=== PATIENT | female | born 1960 | race Caucasian/White ===

== ENCOUNTER 2017-10-01 19:20 | Emergency (ER) | payer OTHER, BC ==
[~2017-10-01] VITALS: Ht 154.9 cm; Wt 70.3 kg
--- OUTSIDE RECORDS SUMMARY | ~2017-10-01 | XMS | Clinical Summary ---
Demographics + + + | Address | [address] | | | [place] [address] | + + + | Home Phone | | + + + | Preferred Language | Unknown | + + + | Marital Status | | + + + | Druze Affiliation | Unknown | + + + | Race | Unknown | + + + | Ethnic Group | Unknown | + + + Author + + + | Author | [facility] | | | and [place] | + + + | Organization | [facility] | | | and [place] | + + + | Address | Unknown | + + + | Phone | Unavailable | + + + Support + + + + + | Name | Relationship | Address | Phone | + + + + + | Other,None | ECON | [place] | | | | | [address] | | + + + + + Care Team Providers + +------+ + | Care Butcher Apprentice Name | Role | Phone | + +------+ + | No, Physician | PP | Unavailable | + +------+ + Allergies Not on File Current Medications Not on file Active Problems Not on file Resolved Problems + + + + | Problem | Noted | Resolved | | | Date | Date | + + + + | Pre-employment health screening examination | 03/30/20 | | | | 19 | 7 | + + + + Social History + +-------+ +--------+------+ | Tobacco Use | Types | Packs/Day | Years | Date | | | | | Used | | + +-------+ +--------+------+ | Never Assessed | | | | | + +-------+ +--------+------+ + + + | Sex Assigned at | Date Recorded | | | | + + + | Not on file | | + + + Plan of Treatment + + + + + | Health Maintenance | Due Date | Last Done | Comments | + + + + + | Hepatitis C | | | | | Screening | 2 | | | + + + + + | Vaccine: | | | | | Dtap/Tdap/Td (1 - | 1 | | | | Tdap) | | | | + + + + + | CERVICAL CANCER | | | | | SCREENING (PAP EVERY | 3 | | | | 3 YEARS 21-64 ) | | | | + + + + + | BREAST CANCER | | | | | SCREENING (MAMM Q2 | 2 | | | | YEARS 50-74) | | | | + + + + + | COLON CANCER | | | | | SCREENING | 2 | | | | (COLONOSCOPY EVERY | | | | | 10 YEARS 50-75) | | | | + + + + + | Vaccine: Influenza | | | | | (Season Ended) | 8 | | | + + + + + Results Not on filefrom Last 3 Months"
--- OUTSIDE RECORDS SUMMARY | ~2017-10-01 | XMS | Clinical Summary ---
Demographics + + + | Address | [address] | | | [place] [address] | + + + | Home Phone | | + + + | Preferred Language | Unknown | + + + | Marital Status | | + + + | Temple Affiliation | Unknown | + + + | Race | Unknown | + + + | Ethnic Group | Unknown | + + + Author + + + | Author | [facility] | | | and [place] | + + + | Organization | [facility] | | | and [place] | + + + | Address | Unknown | + + + | Phone | Unavailable | + + + Support + + + + + | Name | Relationship | Address | Phone | + + + + + | Other,None | ECON | [place] | | | | | [address] | | + + + + + Care Team Providers + +------+ + | Care Child Watch Attendant Name | Role | Phone | + [...]
[~2017-10-01 19:20] MED LIST: ASPIRIN EC325 MG PO; PERCOCET 10-321 EACH PO; PREMARIN42.5 GM VAGINAL; SERTRALINE HCL100 MG PO; SYNTHROID25 MCG PO; TYLENOL325 MG PO; ULTRAM50 MG PO; VITAMIN D2000 UNI1 PO; VITAMIN E400 UNI2 PO; XARELTO10 MG PO
[2017-10-14] MEDS ORDERED: VITAMIN D3400 UNI1 PO (15:08)
[2017-10-14] MEDS ORDERED: IBUPROFEN400 MG PO (15:09)
[2017-10-14] MEDS ORDERED: PAIN RELIEVER1 EAC3 PO (15:10)
== END 2017-10-01 20:20 | disposition left against medical advice (07) ==
LOC: ED 19:20
DX: Z53.21 Procedure and treatment not carried out due to patient leaving prior to being seen by health care provider (principal); Z88.8 Allergy status to other drugs, medicaments and biological substances; Z88.5 Allergy status to narcotic agent; Z79.899 Other long term (current) drug therapy

== ENCOUNTER 2017-10-19 07:05 | Day surgery (SDC) | payer OTHER, BC ==
[~2017-10-19] VITALS: Ht 154.9 cm; Wt 68.0 kg
[~2017-10-19 07:05] MED LIST changes: +IBUPROFEN400 MG PO; +PAIN RELIEVER1 EAC3 PO; +VITAMIN D3400 UNI1 PO
--- NOTE | 2017-10-19 12:52 | NUR ---
10/19/17 1252 Tashia Abad 1244 PATIENT ARRIVES TO PACU, SNORING. PATIENT COUGHS WITH PAINFUL STIMULI, SNORING IMPROVED, PATIENT BACK TO SLEEP. MASK AT 6 LITERS. RESP EVEN AND UNLABORED.
--- NOTE | 2017-10-19 13:49 | NUR ---
PATIENT BACK IN DAY SURGERY ROOM FROM PACU. C/O PAIN 12/14. DECLINED PAIN MEDS AT THIS TIME. STATES JUST WANTS TO SLEEP. C/O NAUSEA. MEDICATED FOR NAUSEA IN PACU. VS CHECKED. LEFT SHOULDER DRESSINGS X 3 CDI. CSM TO LEFT FINGERS WNL. SCDs ON. CALL LIGHT WITHIN REACH.
--- NOTE | 2017-10-19 14:54 | NUR ---
1440: PATIENT AWAKENED FOR VS CHECK. STATES NAUSEA GONE. PAIN IMPROVED. DECLINES PAIN MEDS AT THIS TIME. GIVEN ICE WATER. GIVEN WARM BLANKETS. SIGNIFICANT OTHER AT BEDSIDE. CALL LIGHT WITHIN REACH.
[2017-10-19] MEDS ORDERED: PERCOCET 10-321 EACH PO (15:12)
--- NOTE | 2017-10-19 16:25 | NUR ---
1540: PATIENT ASSISTED OOB AND TO BATHROOM. VOID WITHOUT DIFFICULTY. PATIENT GIVEN JELLO AND CRACKERS TO EAT. DISCHARGE INSTRUCTIONS GIVEN TO PATIENT AND . IV DC'D WNL. TIP INTACT. DRESSING APPLIED. 1605: PATIENT DRESSED AND READY TO GO HOME. PATIENT DISCHARGED TO HOME WITH VIA WHEELCHAIR.
--- NOTE | 2017-10-20 08:27 | OR ---
[facility] [address], [place] [address] Signed DATE OF OPERATION: 10/19/2017 SURGEON: Julita Abbasi MD PREOPERATIVE DIAGNOSIS: Labral tear left shoulder with subacromial impingement. POSTOPERATIVE DIAGNOSIS: Labral tear left shoulder with subacromial impingement. PROCEDURE: Shoulder arthroscopy with debridement of labral tear followed by subacromial decompression and subacromial bursectomy. ANESTHESIA: General. SPECIMENS AND COMPLICATIONS: There were no specimens or complications. TOURNIQUET: Not used. BLOOD LOSS: Minimal. WHAT WAS DONE: The patient was taken to the operating room. After anesthesia was induced and the airway secured, the patient was positioned, and prepped and draped in a routine sterile fashion. The bony topography was outlined with a skin marking pen. The arthroscope was inserted into the shoulder through the standard posterior portal. A brief survey arthroscopy revealed significant degenerative loom changeover operator the chondral surface of the humeral head and particularly over the anterior inferior quadrant of the glenoid. There was some fraying of the labrum, but no discrete tear of the biceps anchor and the biceps tendon appeared to be in excellent shape as was the rotator cuff insertion. An anterior portal was then created using a switching stick technique and a probe was introduced. Careful palpation of all the intra-articular structures confirm the above findings. There were no additional findings. A VAPR electrosurgical device was introduced through the axillary anterior portal and used to debride the minor labral tearing. This is an extremely limited synovectomy of some inflammatory tissue on the undersurface of the Electronically Signed By: JULITA ABBASI MD 10/20/17 0827 PATIENT NAME: PAWAN QUINONES OPERATIVE REPORT DATE OF : 64 REPORT #: [id number] PHYSICIAN: JULITA ABBASI MD PCP: NO PRIMARY CARE PHYSICIAN REPORT IS CONFIDENTIAL AND NOT TO BE RELEASED WITHOUT AUTHORIZATION [facility] [address], [place] [address] Signed supraspinatus. Again, there were no full-thickness tears. The biceps tendon and the biceps anchor looked excellent. We then maneuvered the scope into the subacromial space, where there was some moderate inflammatory synovitis. An auxiliary lateral portal was created. The VAPR was introduced and a subacromial bursectomy performed. We then introduced a 4 mm domitila and did a generous subacromial decompression. Subacromial space was then irrigated and drained. The portals were closed. Sterile dressings applied and the patient was awakened and taken to the recovery room where she arrived in stable condition. Counts were correct and antibiotic protocols were followed. Julita Abbasi MD WFB/MODL /[id number] Copies: ~ Electronically Signed By: JULITA ABBASI MD 10/20/17 0827 PATIENT NAME: PAWAN QUINONES OPERATIVE REPORT DATE OF : 64 REPORT #: [id number] PHYSICIAN: JULITA ABBASI MD PCP: NO PRIMARY CARE PHYSICIAN REPORT IS CONFIDENTIAL AND NOT TO BE RELEASED WITHOUT AUTHORIZATION
== END 2017-10-19 16:03 | disposition home or self-care (01) ==
LOC: OPS 07:05 → DS 07:05 → OPS 09:15
PROVIDERS: Orthopaedic Surgery
PROC: 0RBK4ZZ Excision of Left Shoulder Joint, Percutaneous Endoscopic Approach (ICD-10-PCS; 2017-10-19)
PROC: 0RNK4ZZ Release Left Shoulder Joint, Percutaneous Endoscopic Approach (ICD-10-PCS; principal; 2017-10-19 10:15)
DX: S43.492A Other sprain of left shoulder joint, initial encounter (principal); M25.812 Other specified joint disorders, left shoulder; M19.90 Unspecified osteoarthritis, unspecified site; Z79.899 Other long term (current) drug therapy
CPT/HCPCS: 01630; J0131; J0690; J1885; J2250; J2405; J2550; J2704; J2795; J3010; J3301; J3475; J7120

== ENCOUNTER 2018-04-12 12:39 | Emergency (ER) | payer BC ==
[~2018-04-12] VITALS: Ht 154.9 cm; Wt 68.0 kg
--- OUTSIDE RECORDS SUMMARY | ~2018-04-12 | XMS | Clinical Summary ---
Demographics + + + | Address | [address] | | | [place] [address] | + + + | Home Phone | | + + + | Preferred Language | Unknown | + + + | Marital Status | | + + + | Druze Affiliation | Unknown | + + + | Race | Unknown | + + + | Ethnic Group | Unknown | + + + Author + + + | Author | [facility] | | | and [place] | + + + | Organization | [facility] | | | and [place] | + + + | Address | Unknown | + + + | Phone | Unavailable | + + + Support + + + + + | Name | Relationship | Address | Phone | + + + + + | Other,None | ECON | [place] | | | | | [address] | | + + + + + Care Team Providers + +------+ + | Care Monument Setter Helper Name | Role | Phone | + [...] | + + + + + | Cervical Cancer | | | | | Screening (Pap) | 2 | | | + + + + + | Vaccine: Influenza | | | | | (#1) | 8 | | | + + + + + Results Not on filefrom Last 3 Months"
--- OUTSIDE RECORDS SUMMARY | ~2018-04-12 | XMS | Clinical Summary ---
Demographics + + + | Address | [address] | | | [place] [address] | + + + | Home Phone | | + + + | Preferred Language | Unknown | + + + | Marital Status | | + + + | Episcopalian Affiliation | Unknown | + + + | Race | Unknown | + + + | Ethnic Group | Unknown | + + + Author + + + | Author | [facility] | | | and [place] | + + + | Organization | [facility] | | | and [place] | + + + | Address | Unknown | + + + | Phone | Unavailable | + + + Support + + + + + | Name | Relationship | Address | Phone | + + + + + | Other,None | ECON | [place] | | | | | [address] | | + + + + + Care Team Providers + +------+ + | Care Kiln Operator Name | Role | Phone | + [...]
--- OUTSIDE RECORDS SUMMARY | 2018-04-12 12:44 | XMS ---
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 Details: LWBS CRITERIA MET - Group Notification CARE PROVIDERS There are no care providers on record at this time. [place] has no Care Guidelines for this patient. ERavin VISIT COUNT (12 MO.) 2 [facility] TOTAL 2 NOTE: Visits indicate total known visits. ED/UCC VISIT TRACKING (12 MO.) 04/12/2018 12:40 [facility] [place] TYPE: Emergency COMPLAINT: - R EYE PAIN/NO INJURY 10/01/2017 19:20 [facility] [place] TYPE: Emergency COMPLAINT: - LEFT SHOULDER PAIN DIAGNOSES: - Allergy status to other drugs, medicaments and biological substances status - Allergy status to narcotic agent status - Other penitentiary (current) drug therapy - Procedure and treatment not carried out due to patient leaving prior to being seen by health care provider - Pain in right shoulder INPATIENT VISIT TRACKING (12 MO.) No inpatient visits to display in this time frame [email or web address]
== END 2018-04-12 14:24 | disposition home or self-care (01) ==
LOC: ED 12:39
DX: H20.9 Unspecified iridocyclitis (principal); H40.9 Unspecified glaucoma; Z87.891 Personal history of nicotine dependence; Z88.5 Allergy status to narcotic agent; Z88.8 Allergy status to other drugs, medicaments and biological substances; Z79.899 Other long term (current) drug therapy
CPT/HCPCS: 99283